=== PATIENT | female | born 1985 | race Caucasian/White ===

== ENCOUNTER → 2020-12-06 | Outpatient (CLI) | payer OTHER ==
[~2020-12-06] MED LIST: ENULOSE10 GM/15 M PO
[2020-12-06 10:55] LABS: HEMOGLOBIN 16.1 gm/dl (12.3-15.3); RED BLOOD COUNT 5.14 M/UL (4.00-5.10); WHITE BLOOD COUNT 11.8 K/UL (4.5-11.0)
[2020-12-07 07:11] LABS: RHEUMATOID ARTHRITIS FACTOR 10.7 IU/mL (0.0-13.9)
== END ==
LOC: LAB 09:35
PROVIDERS: Nurse Practitioner Family
DX: M79.641 Pain in right hand (principal); M79.642 Pain in left hand; M25.50 Pain in unspecified joint; M79.10 Myalgia, unspecified site; E55.9 Vitamin D deficiency, unspecified; R76.8 Other specified abnormal immunological findings in serum; R53.83 Other fatigue; D89.9 Disorder involving the immune mechanism, unspecified
CPT/HCPCS: 36415; 73130; 82550; 82728; 83520; 84443; 85025; 85652; 86140; 86200; 86431